=== PATIENT | female | born 1995 | race Caucasian/White ===

== ENCOUNTER 2019-05-10 12:53 | Outpatient (CLI) | payer OTHER ==
--- NOTE | 2019-05-10 15:54 | NM ---
EXAM: NM Hida Scan W Drug PROVIDED CLINICAL HISTORY: Specified nausea and vomiting. Patient reports vomiting bilious fluid for 5 weeks. COMPARISON: None FINDINGS: There is normal uptake and excretion of radiotracer by the liver. Gallbladder activity is faintly vis ualized by 4 to 5 minutes with increasing activity in the gallbladder imaging up to 60 minutes. Faint bowel activity is visualized at 10 minutes. After 60 minutes of imaging, 8 ounces of Ensure was administered by mouth, and a gallbladder ejection fraction of 80% was obtained. Normal gallbladder ejection fraction is greater than 33%. IMPRESSION: 1. No evidence of a cystic or common duct obstruction. 2. Normal gallbladder ejection fraction.
== END 2019-05-10 12:54 | disposition home or self-care (01) ==
LOC: NM 12:53
PROVIDERS: ATTEND Physician Assistant Medical
DX: R10.13 Epigastric pain (principal); R11.2 Nausea with vomiting, unspecified; R19.4 Change in bowel habit
CPT/HCPCS: 78227; A9537